=== PATIENT | male | born 1970 | race African-American/Black ===

== ENCOUNTER 2016-08-14 13:07 | Emergency (ER) | payer MEDICAID ==
[~2016-08-14] VITALS: Ht 185.4 cm; Wt 84.0 kg
[~2016-08-14 13:07] MED LIST: ASPI-1035 PO
[2016-08-14] MEDS ORDERED: ONDANSETRON HCL 4MG/2ML VIAL IV STA ×2 (15:24→17:37)
[2016-08-14] MEDS ORDERED: SODIUM CHLORIDE 0.9% 1,000 ML IV ONE (15:24)
[2016-08-14] MEDS ORDERED: MORPHINE SULFATE 4 MG/ML CPJ (NOT FOR IM USE) IV STA ×2 (15:24→17:37)
[2016-08-14 15:48] LABS: HEMATOCRIT. 42.7 % (42.0-52.0); HEMOGLOBIN. 14.5 g/dL (14.0-18.0); MEAN CORPUSCULAR HEMOGLOBIN 29.3 pg (28.0-32.0); MEAN CORPUSCULAR HGB CONC 33.9 g/dL (31.0-37.0); MEAN CORPUSCULAR VOLUME 86.6 fL (80.0-94.0); MEAN PLATELET VOLUME 9.3 fl (7.4-10.4); PLATELET 158 x1000/uL (130-400); RED BLOOD CELL COUNT 4.93 mill/uL (4.7-6.1); RED CELL DISTRIBUTION WIDTH 13.6 % (11.6-14.6); WHITE BLOOD COUNT 9.4 x1000/uL (4.5-11.0)
[2016-08-14 15:52] LABS: CHLORIDE 105 mEq/L (98-107); INDEX HEMOLYSI 1 (1-3); INDEX ICTERIC 1 (1-4); INDEX LIPEMIC 1 (1-3)
[2016-08-14 15:55] LABS: DIFFERENTIAL COMMENT 1; INR 1.1
[2016-08-14 16:01] LABS: ALANINE AMINOTRANSFERASE 46 IU/L (13-61); ALBUMIN 4.5 g/dL (3.4-5.0); ANION GAP 15; CALCIUM 9.6 mg/dL (8.5-10.1); CARBON DIOXIDE 24 mEq/L (21-32); LIPASE 77 IU/L (73-393); UREA NITROGEN BLOOD 16 mg/dL (7-21); eGFR > 60 mL/min (>60)
[2016-08-14 16:28] LABS: PLATELET ESTIMATE NORMAL
[2016-08-14 17:49] VITALS: BP 145/67
[2016-08-14 17:57] LABS: CLARITY URINE CLEAR (CLEAR); COLOR URINE DARK YELLOW (YELLOW); GLUCOSE URINE NEGATIVE (NEGATIVE); KETONES URINE 4+ (NEGATIVE); LEUKOCYTE ESTERASE URINE NEGATIVE (NEGATIVE); NITRITE URINE NEGATIVE (NEGATIVE); OCCULT BLOOD URINE NEGATIVE (NEGATIVE); PH URINE >=9.0 (4.5-8.0); PROTEIN URINE 1+ (NEGATIVE); SPECIFIC GRAVITY URINE 1.038 (1.005-1.030)
[2016-08-14] MEDS ORDERED: POTASSIUM CHLORIDE 20MEQ TABLET SR PO ONE (18:15)
[2016-08-14 18:22] LABS: BACTERIA URINE 2+; MUCUS URINE 2+ /lpf (NONE/TRACE); RBC URINE NONE SEEN /hpf (0-2); SQUAMOUS EPITHELIAL CELL URINE NONE SEEN /lpf (RARE/1+); WBC URINE 0-2 /hpf (0-2)
== END 2016-08-14 19:00 | disposition home or self-care (01) ==
LOC: ER 13:07
DX: A08.4 Viral intestinal infection, unspecified (principal); F12.10 Cannabis abuse, uncomplicated; Z79.82 Long term (current) use of aspirin; Z87.828 Personal history of other (healed) physical injury and trauma
CPT/HCPCS: 36415; 76705; 80053; 81001; 83690; 85025; 85610; 96361; 96374; 96375; 96376; 99285; J2270; J2405; J7030; Z7610

== ENCOUNTER 2016-11-21 13:51 | Inpatient (IN) | payer MEDICAID ==
[~2016-11-21] VITALS: Ht 185.4 cm; Wt 83.9 kg
[2016-11-21] MEDS: SODIUM CHLORIDE 0.9% 1,000 ML IV SCH (05:50)
[~2016-11-21 13:51] MED LIST changes: -ASPI-1035 PO; +ASPI-1159 PO; +IOHEXOL-300 100 ML BOTTLE ONE; +SODIUM CHLORIDE 0.9% 10ML VIAL ONE
[2016-11-21] MEDS ORDERED: SODIUM CHLORIDE 0.9% 1,000 ML IV ONE (16:15)
[2016-11-21] MEDS ORDERED: FAMOTIDINE 20MG/2ML VIAL IV ONE (16:15)
[2016-11-21] MEDS ORDERED: ONDANSETRON HCL 4MG/2ML VIAL IV ONE ×2 (16:15→18:15)
[2016-11-21] MEDS ORDERED: MORPHINE SULFATE 4 MG/ML CPJ (NOT FOR IM USE) IV ONE ×2 (16:30→19:00)
[2016-11-21 16:42] LABS: HEMATOCRIT. 42.5 % (42.0-52.0); HEMOGLOBIN. 14.3 g/dL (14.0-18.0); MEAN CORPUSCULAR HEMOGLOBIN 29.2 pg (28.0-32.0); MEAN CORPUSCULAR VOLUME 86.8 fL (80.0-94.0); MEAN PLATELET VOLUME 9.2 fl (7.4-10.4); PLATELET 131 x1000/uL (130-400); RED BLOOD CELL COUNT 4.89 mill/uL (4.7-6.1)
[2016-11-21 16:44] LABS: CHLORIDE 105 mEq/L (98-107)
[2016-11-21 16:45] LABS: INR 1.1; PROTHROMBIN TIME 11.4 sec
[2016-11-21 16:50] LABS: CARBON DIOXIDE 28 mEq/L (21-32)
[2016-11-21 17:39] LABS: PLATELET ESTIMATE NORMAL
[2016-11-21] MEDS ORDERED: KETOROLAC 30MG/ML VIAL IV ONE (18:30)
[2016-11-21 19:50] LABS: CLARITY URINE CLEAR (CLEAR); COLOR URINE YELLOW (YELLOW); GLUCOSE URINE NEGATIVE (NEGATIVE); KETONES URINE TRACE (NEGATIVE); LEUKOCYTE ESTERASE URINE NEGATIVE (NEGATIVE); NITRITE URINE NEGATIVE (NEGATIVE); OCCULT BLOOD URINE NEGATIVE (NEGATIVE); PH URINE >=9.0 (4.5-8.0); PROTEIN URINE TRACE (NEGATIVE); SPECIFIC GRAVITY URINE 1.057 (1.005-1.030); UROBILINOGEN URINE 0.2 E.U./dL (0.2-1.0)
[2016-11-21 20:01] LABS: *AMPHETAMINES SCREEN URINE NEGATIVE (NEGATIVE); *BARBITURATES SCREEN URINE NEGATIVE (NEGATIVE); *BENZODIAZEPINES SCREEN URINE NEGATIVE (NEGATIVE); *COCAINE SCREEN URINE NEGATIVE (NEGATIVE); CANNABINOID URINE SCREEN PRESUMTIVE POSITIVE (NEGATIVE); METHADONE URINE SCREEN NEGATIVE (NEGATIVE); OPIATES URINE SCREEN NEGATIVE (NEGATIVE); PHENCYCLIDINE URINE SCREEN NEGATIVE (NEGATIVE)
[2016-11-21] MEDS ORDERED: CLONIDINE 0.1MG TABLET PO PRN (22:15)
[2016-11-21] MEDS ORDERED: ACETAMINOPHEN 325MG TABLET PO PRN (22:15)
[2016-11-21] MEDS ORDERED: HYDROCODONE/ACETAMINOPHEN 5/325MG TABLET PO PRN (22:15)
[2016-11-21] MEDS ORDERED: ONDANSETRON HCL 4MG/2ML VIAL IV PRN (22:15)
[2016-11-21] MEDS ORDERED: IPRATROPIUM/ALBUTEROL 0.5-3(2.5)MG/3ML NEB INH PRN (22:15)
[2016-11-21] MEDS ORDERED: MAGNESIUM/ALUMINUM HYDROXIDE/SIMETHICONE 30ML UDC PO PRN (22:15)
[2016-11-21 22:38] LABS: CHLORIDE 103 mEq/L (98-107)
[2016-11-21 22:40] LABS: CARBON DIOXIDE 28 mEq/L (21-32)
[2016-11-22 05:03] LABS: BASOPHILS % 0.3 % (0.0-2.0); EOSINOPHILS % 0.1 % (0.0-5.0); HEMATOCRIT. 41.2 % (42.0-52.0); HEMOGLOBIN. 13.9 g/dL (14.0-18.0); LYMPHOCYTES % 13.1 % (20.0-50.0); MEAN CORPUSCULAR HEMOGLOBIN 29.4 pg (28.0-32.0); MONOCYTES % 6.8 % (2.0-8.0); NEUTROPHILS % 79.7 % (40.0-76.0); PLATELET 126 x1000/uL (130-400); RED BLOOD CELL COUNT 4.73 mill/uL (4.7-6.1); RED CELL DISTRIBUTION WIDTH 14.1 % (11.6-14.6)
[2016-11-22 05:20] LABS: CREATINE KINASE 407 IU/L (39-308); LDL CHOLESTEROL 76 mg/dL (5-100); TROPONIN I < 0.02 ng/mL (0.00-0.04)
[2016-11-22 05:21] LABS: CREATINE KINASE MB FRACTION 0.8 ng/mL (0.5-3.6); HDL CHOLESTEROL 57 mg/dL (40-59)
[2016-11-22] MEDS ORDERED: ENOXAPARIN 40MG/0.4ML SYR SUBCUT SCH (09:00)
[2016-11-22] MEDS: SODIUM CHLORIDE 0.9% 1,000 ML IV SCH (09:11)
[2016-11-22 09:18] VITALS: BP 125/75
[2016-11-22 11:53] VITALS: BP 121/66
[2016-11-22 13:42] VITALS: BP 125/78
== END 2016-11-22 14:43 | disposition home or self-care (01) | DRG 247 ==
LOC: ER 15:46 → 8WST 18:58 → ENRESERV 11-22 06:55
PROVIDERS: ADMIT Internal Medicine; ATTEND Internal Medicine
DX: K56.69 Other intestinal obstruction (principal); I10 Essential (primary) hypertension; Z79.82 Long term (current) use of aspirin; K56.7 Ileus, unspecified
CPT/HCPCS: 36415; 74000; 74177; 80048; 80053; 80061; 80305; 81001; 82550; 82553; 83690; 83735; 84484; 85025; 85610; 93005; 93970; 96361; 96374; 96375; 96376; 99285; A4216; J1650; J1885; J2270; J2405; J3490; J7030; Q9967

== ENCOUNTER 2017-09-13 08:15 | Emergency (ER) | payer MEDICAID ==
[~2017-09-13] VITALS: Ht 185.4 cm; Wt 84.0 kg
[~2017-09-13 08:15] MED LIST changes: -IOHEXOL-300 100 ML BOTTLE ONE; -SODIUM CHLORIDE 0.9% 10ML VIAL ONE
[2017-09-13] MEDS ORDERED: SODIUM CHLORIDE 0.9% 1,000 ML IV ONE ×2 (09:00→12:15)
[2017-09-13] MEDS ORDERED: ONDANSETRON HCL 4MG/2ML VIAL IV ONE (09:00)
[2017-09-13 09:12] LABS: BASOPHILS % 0.6 % (0.0-2.0); EOSINOPHILS % 0.5 % (0.0-5.0); HEMATOCRIT. 43.1 % (42.0-52.0); HEMOGLOBIN. 14.5 g/dL (14.0-18.0); LYMPHOCYTES % 16.2 % (20.0-50.0); MEAN CORPUSCULAR HEMOGLOBIN 29.3 pg (28.0-32.0); MEAN CORPUSCULAR VOLUME 87.1 fL (80.0-94.0); MONOCYTES % 4.1 % (2.0-8.0); NEUTROPHILS % 78.6 % (40.0-76.0); PLATELET 146 x1000/uL (130-400); RED BLOOD CELL COUNT 4.94 mill/uL (4.7-6.1)
[2017-09-13 09:15] LABS: CHLORIDE 104 mEq/L (98-107)
[2017-09-13 09:16] LABS: INR 1.1; PROTHROMBIN TIME 10.9 sec (9.4-11.6)
[2017-09-13] MEDS ORDERED: MORPHINE SULFATE 4 MG/ML CPJ (NOT FOR IM USE) IV ONE (09:45)
[2017-09-13 11:37] LABS: CLARITY URINE CLEAR (CLEAR); COLOR URINE YELLOW (YELLOW); KETONES URINE NEGATIVE (NEGATIVE); LEUKOCYTE ESTERASE URINE NEGATIVE (NEGATIVE); NITRITE URINE NEGATIVE (NEGATIVE); OCCULT BLOOD URINE NEGATIVE (NEGATIVE); PH URINE 8.5 (4.5-8.0); PROTEIN URINE TRACE (NEGATIVE); SPECIFIC GRAVITY URINE 1.052 (1.005-1.030); UROBILINOGEN URINE 0.2 E.U./dL (0.2-1.0)
[2017-09-13] MEDS ORDERED: METOCLOPRAMIDE HCL 10MG/2ML VIAL IV ONE (12:15)
[2017-09-13] MEDS ORDERED: DIPHENHYDRAMINE 50MG/ML VIAL IV ONE (12:15)
[2017-09-13 14:29] VITALS: BP 107/50
[2017-09-13] MEDS ORDERED: IOHEXOL-300 100 ML BOTTLE ONE (14:32)
== END 2017-09-13 14:37 | disposition home or self-care (01) ==
LOC: ER 08:48
DX: K52.9 Noninfective gastroenteritis and colitis, unspecified (principal); E87.6 Hypokalemia; K44.9 Diaphragmatic hernia without obstruction or gangrene; R73.9 Hyperglycemia, unspecified; Z79.82 Long term (current) use of aspirin; R79.1 Abnormal coagulation profile
CPT/HCPCS: 36415; 74177; 76705; 80053; 81003; 83690; 85025; 85610; 93005; 96361; 96374; 96375; 99285; J1200; J2270; J2405; J2765; J7030; Q9967; Z7610

== ENCOUNTER 2017-09-15 05:25 | Emergency (ER) | payer MEDICAID ==
[~2017-09-15] VITALS: Ht 185.4 cm; Wt 84.0 kg
[2017-09-15] MEDS ORDERED: SODIUM CHLORIDE 0.9% 1,000 ML IV ONE (08:04)
[2017-09-15] MEDS ORDERED: FAMOTIDINE 20MG/2ML VIAL IV STA (08:04)
[2017-09-15] MEDS ORDERED: MAGNESIUM/ALUMINUM HYDROXIDE/SIMETHICONE 30ML UDC PO STA (08:04)
[2017-09-15] MEDS ORDERED: METOCLOPRAMIDE HCL 10MG/2ML VIAL IV STA (08:04)
[2017-09-15] MEDS ORDERED: MORPHINE SULFATE 4 MG/ML CPJ (NOT FOR IM USE) IV STA (08:04)
[2017-09-15] MEDS ORDERED: KETOROLAC 30MG/ML VIAL IV STA (08:04)
[2017-09-15 08:58] LABS: BASOPHILS % 0.2 % (0.0-2.0); HEMATOCRIT. 38.9 % (42.0-52.0); HEMOGLOBIN. 13.1 g/dL (14.0-18.0); LYMPHOCYTES % 10.6 % (20.0-50.0); MEAN CORPUSCULAR HEMOGLOBIN 29.4 pg (28.0-32.0); MEAN CORPUSCULAR VOLUME 87.4 fL (80.0-94.0); MEAN PLATELET VOLUME 8.9 fl (7.4-10.4); MONOCYTES % 2.7 % (2.0-8.0); NEUTROPHILS % 86.5 % (40.0-76.0); PLATELET 137 x1000/uL (130-400); RED BLOOD CELL COUNT 4.45 mill/uL (4.7-6.1); RED CELL DISTRIBUTION WIDTH 14.1 % (11.6-14.6)
[2017-09-15 09:06] LABS: INR 1.1; PROTHROMBIN TIME 11.5 sec (9.4-11.6)
[2017-09-15 10:31] LABS: CHLORIDE 108 mEq/L (98-107)
[2017-09-15 10:41] LABS: ETHANOL BLOOD < 10 mg/dL
[2017-09-15 12:19] LABS: CLARITY URINE CLEAR (CLEAR); COLOR URINE YELLOW (YELLOW); KETONES URINE 1+ (NEGATIVE); LEUKOCYTE ESTERASE URINE TRACE (NEGATIVE); NITRITE URINE NEGATIVE (NEGATIVE); OCCULT BLOOD URINE NEGATIVE (NEGATIVE); PH URINE 6.5 (4.5-8.0); PROTEIN URINE NEGATIVE (NEGATIVE); SPECIFIC GRAVITY URINE 1.027 (1.005-1.030); UROBILINOGEN URINE 0.2 E.U./dL (0.2-1.0)
[2017-09-15 12:43] LABS: *AMPHETAMINES SCREEN URINE NEGATIVE (NEGATIVE); *BARBITURATES SCREEN URINE NEGATIVE (NEGATIVE); *BENZODIAZEPINES SCREEN URINE NEGATIVE (NEGATIVE)
[2017-09-15 12:44] LABS: *COCAINE SCREEN URINE NEGATIVE (NEGATIVE); CANNABINOID URINE SCREEN PRESUMTIVE POSITIVE (NEGATIVE); METHADONE URINE SCREEN NEGATIVE (NEGATIVE); OPIATES URINE SCREEN PRESUMTIVE POSITIVE (NEGATIVE); PHENCYCLIDINE URINE SCREEN NEGATIVE (NEGATIVE)
[2017-09-15 12:57] VITALS: BP 129/65
== END 2017-09-15 12:59 | disposition home or self-care (01) ==
LOC: ER 07:16
DX: K52.9 Noninfective gastroenteritis and colitis, unspecified (principal); K29.70 Gastritis, unspecified, without bleeding; Z79.82 Long term (current) use of aspirin; Z87.828 Personal history of other (healed) physical injury and trauma; Z98.890 Other specified postprocedural states
CPT/HCPCS: 36415; 80053; 80305; 81003; 83605; 83690; 85025; 85610; 96361; 96374; 96375; 99284; G0482; J1885; J2270; J2765; J3490; J7030; Z7610

== ENCOUNTER 2018-01-02 22:14 | Emergency (ER) | payer SELFPAY ==
[~2018-01-02] VITALS: Ht 185.4 cm; Wt 91.0 kg
[2018-01-02] MEDS ORDERED: ASPIRIN 325MG TABLET PO ONE (22:45)
[2018-01-02 23:32] LABS: BASOPHILS % 0.6 % (0.0-2.0); EOSINOPHILS % 1.5 % (0.0-5.0); HEMATOCRIT. 42.3 % (42.0-52.0); HEMOGLOBIN. 14.1 g/dL (14.0-18.0); LYMPHOCYTES % 35.5 % (20.0-50.0); MEAN CORPUSCULAR HEMOGLOBIN 29.8 pg (28.0-32.0); MEAN CORPUSCULAR VOLUME 89.2 fL (80.0-94.0); MEAN PLATELET VOLUME 9.7 fl (7.4-10.4); MONOCYTES % 6.2 % (2.0-8.0); NEUTROPHILS % 56.2 % (40.0-76.0); PLATELET 136 x1000/uL (130-400); RED BLOOD CELL COUNT 4.74 mill/uL (4.7-6.1); RED CELL DISTRIBUTION WIDTH 13.6 % (11.6-14.6)
[2018-01-02 23:40] LABS: CHLORIDE 105 mEq/L (98-107)
[2018-01-03 02:14] VITALS: BP 108/54
== END 2018-01-03 02:23 | disposition home or self-care (01) ==
LOC: ER 22:14
DX: R07.9 Chest pain, unspecified (principal); F12.10 Cannabis abuse, uncomplicated; I51.9 Heart disease, unspecified
CPT/HCPCS: 36415; 71045; 80053; 83880; 84484; 85025; 85379; 93005; 99285; Z7610

== ENCOUNTER 2021-03-25 07:06 | Emergency (ER) | payer MEDICAID ==
[~2021-03-25] VITALS: Ht 185.4 cm; Wt 90.0 kg
[~2021-03-25 07:06] MED LIST changes: -ASPI-1159 PO; +ASPI-1497 PO
[2021-03-25] MEDS ORDERED: ONDANSETRON HCL 4MG/2ML INJ IV STA (07:57)
[2021-03-25] MEDS ORDERED: KETOROLAC 30MG/ML VIAL IV STA (07:57)
[2021-03-25] MEDS ORDERED: SODIUM CHLORIDE 0.9% 1,000 ML IV ONE (08:00)
[2021-03-25 08:33] LABS: BASOPHILS % 0.3 % (0.0-2.0); EOSINOPHILS % 0.1 % (0.0-5.0); HEMATOCRIT. 47.3 % (42.0-52.0); HEMOGLOBIN. 15.4 g/dL (14.0-18.0); MEAN CORPUSCULAR HEMOGLOBIN 29.1 pg (28.0-32.0); MEAN CORPUSCULAR VOLUME 89.2 fL (80.0-94.0); MEAN PLATELET VOLUME 9.2 fl (7.4-10.4); MONOCYTES % 5.3 % (2.0-8.0); NEUTROPHILS % 86.3 % (40.0-76.0); PLATELET 176 x1000/uL (130-400); RED CELL DISTRIBUTION WIDTH 14.8 % (11.6-14.6)
[2021-03-25 08:39] LABS: CHLORIDE 106 mEq/L (98-107)
[2021-03-25 09:30] VITALS: BP 144/87
[2021-03-25] MEDS ORDERED: MAGNESIUM/ALUMINUM HYDROXIDE/SIMETHICONE 30ML UDC PO ONE (09:45)
[2021-03-25 10:25] LABS: CLARITY URINE TURBID (CLEAR); COLOR URINE YELLOW (YELLOW); KETONES URINE TRACE (NEGATIVE); LEUKOCYTE ESTERASE URINE NEGATIVE (NEGATIVE); NITRITE URINE NEGATIVE (NEGATIVE); OCCULT BLOOD URINE NEGATIVE (NEGATIVE); PROTEIN URINE 1+ (NEGATIVE); SPECIFIC GRAVITY URINE 1.031 (1.005-1.030); UROBILINOGEN URINE 0.2 E.U./dL (0.2-1.0)
[2021-03-25] MEDS ORDERED: ONDA4TAB5 MT (10:28)
[2021-03-25] MEDS ORDERED: OMEP40CA20 MT (10:28)
== END 2021-03-25 10:42 | disposition home or self-care (01) ==
LOC: ER 08:58
DX: R10.33 Periumbilical pain (principal); R11.2 Nausea with vomiting, unspecified; R94.31 Abnormal electrocardiogram [ECG] [EKG]; R03.0 Elevated blood-pressure reading, without diagnosis of hypertension
CPT/HCPCS: 36415; 74176; 80053; 81003; 83690; 85025; 93005; 96361; 96374; 96375; 99285; J1885; J2405; J7030